=== PATIENT | male | born 1955 | race Caucasian/White ===

== ENCOUNTER 2018-01-28 13:34 | Emergency (ER) | payer MEDICARE, MEDICAID ==
[~2018-01-28] VITALS: Ht 165.1 cm; Wt 77.1 kg
[~2018-01-28 13:34] MED LIST: [UNRECOGNIZED DRUG - REMARK]
[2018-01-28 15:15] LABS: Basophils # (auto) 0 uL; Basophils % (auto) 0.2 % (0.0-2.0); Eosinophils # (auto) 0 uL; Hematocrit 39.9 % (41.0-53.0); Hemoglobin 13.4 g/dL (13.5-17.5); Lymphocytes # (auto) 1.2 uL; Lymphocytes % (auto) 19.6 % (10.0-50.0); Mean Corpuscular Hemoglobin 32.5 pg (28.0-32.0); Mean Corpuscular Hgb Conc. 33.7 g/dL (32.0-36.0); Mean Corpuscular Volume 96.3 fL (80.0-100.0); Monocytes # (auto) 0.5 uL; Monocytes % (auto) 7.3 % (0.0-12.0); Neutrophils # (auto) 4.5 uL; Neutrophils % (auto) 72.9 % (37.0-80.0); Nucleated Red Blood Cells % 0.1 %; Platelet Count (auto) 201 10^3/uL (140-450); Red Blood Cells 4.14 10^6/uL (4.5-5.90); Red Cell Distribution Width 13.5 % (11.8-14.3); White Blood Cell 6.2 10^3/uL (4.4-10.8)
[2018-01-28 15:36] LABS: Alanine Aminotransferase 29 U/L (16-61); Albumin 3.9 g/dL (3.4-5.0); Alkaline Phosphatase 101 U/L (45-117); Anion Gap 11 (5-15); Aspartate Aminotransferase 18 U/L (15-37); BUN/Creatinine Ratio 22.2; Bilirubin, Total 0.4 mg/dL (0.2-1.0); Blood Alcohol < 3.0 mg/dL (0-5); Blood Urea Nitrogen 28 mg/dL (7-18); Calcium 9.1 mg/dL (8.5-10.1); Carbon Dioxide 22 mmol/L (21-32); Chloride 106 mmol/L (98-107); GFR African American 74 mL/min; GFR Non-African American 61 mL/min; Glucose 98 mg/dL (74-106); Potassium 3.4 mmol/L (3.5-5.1); Sodium 139 mmol/L (136-145); Total Protein 7.5 g/dL (6.4-8.2)
[2018-01-28 18:03] VITALS: BP 146/95
== END 2018-01-28 18:09 | disposition home or self-care (01) ==
LOC: ER 13:41
DX: F31.9 Bipolar disorder, unspecified (principal); I10 Essential (primary) hypertension; R42 Dizziness and giddiness; Z79.899 Other long term (current) drug therapy
CPT/HCPCS: 36415; 70450; 80053; 80320; 85025

== ENCOUNTER 2018-02-01 20:48 | Observation (INO) | payer MEDICARE, MEDICAID ==
[~2018-02-01] VITALS: Ht 177.8 cm; Wt 81.6 kg
[2018-02-01 22:07] LABS: Basophils # (auto) 0 uL; Basophils % (auto) 0.7 % (0.0-2.0); Eosinophils # (auto) 0 uL; Eosinophils % (auto) 0.3 % (0.0-7.0); Hematocrit 38.6 % (41.0-53.0); Hemoglobin 13.2 g/dL (13.5-17.5); Lymphocytes # (auto) 2.4 uL; Lymphocytes % (auto) 31.3 % (10.0-50.0); Mean Corpuscular Hemoglobin 33.2 pg (28.0-32.0); Mean Corpuscular Hgb Conc. 34.2 g/dL (32.0-36.0); Mean Corpuscular Volume 96.9 fL (80.0-100.0); Monocytes # (auto) 0.8 uL; Monocytes % (auto) 10.4 % (0.0-12.0); Neutrophils # (auto) 4.3 uL; Neutrophils % (auto) 57.3 % (37.0-80.0); Platelet Count (auto) 216 10^3/uL (140-450); Red Blood Cells 3.98 10^6/uL (4.5-5.90); Red Cell Distribution Width 13.3 % (11.8-14.3); White Blood Cell 7.5 10^3/uL (4.4-10.8)
[2018-02-01 22:30] LABS: Alanine Aminotransferase 33 U/L (16-61); Albumin 3.3 g/dL (3.4-5.0); Alkaline Phosphatase 90 U/L (45-117); Anion Gap 11 (5-15); Aspartate Aminotransferase 28 U/L (15-37); BUN/Creatinine Ratio 16.5; Bilirubin, Total 0.4 mg/dL (0.2-1.0); Blood Alcohol < 3.0 mg/dL (0-5); Blood Urea Nitrogen 18 mg/dL (7-18); Calcium 8.6 mg/dL (8.5-10.1); Carbon Dioxide 24 mmol/L (21-32); Chloride 105 mmol/L (98-107); GFR African American 88 mL/min; GFR Non-African American 72 mL/min; Glucose 106 mg/dL (74-106); Potassium 3.6 mmol/L (3.5-5.1); Sodium 140 mmol/L (136-145); Total Protein 6.9 g/dL (6.4-8.2)
[2018-02-02] MEDS ORDERED: diphenhdrAMINE HCL 50 MG/1 ML VL IM ONE (04:30)
[2018-02-02] MEDS ORDERED: HALOPERIDOL LACTATE 5 MG/ML INJ VIAL IM ONE (04:30)
[2018-02-02] MEDS ORDERED: LORazepam 2MG/ML-1ML VIAL IM ONE ×2 (04:30→12:00)
[2018-02-02 05:07] LABS: Urine Bacteria NONE SEEN /hpf (None Seen); Urine Blood Negative /uL (Negative); Urine Mucus FEW (None Seen); Urine WBC 1 /hpf (0 - 3)
[2018-02-02 05:19] LABS: Alcohol, Urine < 3.0 mg/dL (0-5); Amphetamine Screen, Urine NEGATIVE (NEGATIVE); Barbiturate Scree,Urine NEGATIVE (NEGATIVE); Benzodiazephine Screen, Urine NEGATIVE (NEGATIVE); Cannabinoid Screen, Urine NEGATIVE (NEGATIVE); Cocaine Screen, Urine NEGATIVE (NEGATIVE); Opiate Scree,Urine NEGATIVE (NEGATIVE); Phencyclidine Screen, Urine NEGATIVE (NEGATIVE)
[2018-02-02] MEDS ORDERED: LORazepam 2MG/ML-1ML VIAL IM PRN (11:15)
[2018-02-02] MEDS: MAGNESIUM OXIDE 400 MG TAB PO SCH (11:17)
[2018-02-02] MEDS ORDERED: LEVOTHYROXINE SODIUM 50 MCG TAB PO ONE (11:17)
[2018-02-02] MEDS: LORATADINE 10 MG TAB PO SCH (11:18)
[2018-02-02] MEDS: HCTZ 25 MG TAB PO SCH (11:28)
[2018-02-02] MEDS: ENALAPRIL MALEATE 10 MG TAB PO SCH (11:28)
[2018-02-02] MEDS: LEVOTHYROXINE SODIUM 50 MCG TAB PO SCH (11:29)
[2018-02-02] MEDS: LORazepam 0.5 MG TAB PO PRN (11:30)
[2018-02-02] MEDS: QUEtiapine FUMARATE 100 MG TAB PO SCH (11:32)
[2018-02-02] MEDS ORDERED: LORazepam 0.5 MG TAB PO ONE (12:00)
[2018-02-03] MEDS: QUEtiapine FUMARATE 100 MG TAB PO SCH ×2 (02:00→11:50)
[2018-02-03] MEDS: LORazepam 0.5 MG TAB PO PRN (02:58)
[2018-02-03] MEDS: ENALAPRIL MALEATE 10 MG TAB PO SCH ×2 (02:59→12:02)
[2018-02-03 11:43] VITALS: BP 117/80
[2018-02-03] MEDS: LORATADINE 10 MG TAB PO SCH (11:50)
[2018-02-03] MEDS: MAGNESIUM OXIDE 400 MG TAB PO SCH (11:50)
[2018-02-03] MEDS: LEVOTHYROXINE SODIUM 50 MCG TAB PO SCH (11:51)
[2018-02-03] MEDS: HCTZ 25 MG TAB PO SCH (12:02)
== END 2018-02-03 14:06 | disposition home or self-care (01) | DRG 72 ==
LOC: EDBD 20:48 → ER 21:07 → OVERFLOW 21:08 → ER 02-03 14:06
PROVIDERS: ADMIT Emergency Medicine; ATTEND Emergency Medicine
DX: G93.41 Metabolic encephalopathy (principal); R41.82 Altered mental status, unspecified; F31.9 Bipolar disorder, unspecified; I10 Essential (primary) hypertension
CPT/HCPCS: 36415; 70450; 71045; 80053; 80307; 80320; 81001; 83735; 84443; 84484; 85025; 85379; 93005; 96372; 99285; G0378; J1200; J1630; J2060